=== PATIENT | female | born 2000 | race African-American/Black ===

== ENCOUNTER 2018-09-08 22:52 | Emergency (ER) | payer SELFPAY ==
[~2018-09-08] VITALS: Ht 180.3 cm; Wt 81.6 kg
[2018-09-08 22:55] VITALS: BP 135/88
--- NOTE | 2018-09-08 22:55 | NUR ---
TO BED # 02 AMBULATORY
--- NOTE | 2018-09-08 23:00 | NUR ---
18 YO FEMALE COMES TO ED FOR C/O BILAT ARM CYST PAIN. PT DENIES FEVER @ THIS TIME. NO S/S OF DRAINAGE NOTED. LUNGS CLEAR EVEN UNLABORED BILAT. PALPABLE PULSES TO DISTAL EXTREMITIES. WILL UPDATE ER MD WILL CONTINUE TO OBSERVE. PMH: BRONCHITIS, CYSTS RX:NONE ALLERGIES: NONE
[2018-09-08] MEDS ORDERED: KETOROLAC 15 MG/ML VIAL IVP ONE (23:20)
[2018-09-08] MEDS ORDERED: ceFAZolin 1,000 MG VIAL ONE (23:33)
[2018-09-09 00:52] VITALS: BP 131/62
--- NOTE | 2018-09-09 00:52 | NUR ---
Patient discharged with v/s stable. Written and verbal after care instructions given and explained BY DR MORENO. Patient alert, oriented and verbalized understanding of instructions. Ambulatory with steady gait. All questions addressed prior to discharge. ID band removed. Patient advised to follow up with PMD. Rx of KEFLEX, NORCO given. Patient educated on indication of medication including possible reaction and side effectsBY DR MORENO Opportunity to ask questions provided and answered BY DR MORENO
== END 2018-09-09 00:52 | disposition home or self-care (01) ==
LOC: MED 22:52
DX: L73.2 Hidradenitis suppurativa (principal); Z88.2 Allergy status to sulfonamides; Z88.1 Allergy status to other antibiotic agents
CPT/HCPCS: 96365; 96375; 99283; J0690; J1885